=== PATIENT | male | born 1945 | race Caucasian/White ===

== ENCOUNTER 2021-05-20 11:25 | Observation (INO) | payer OTHER ==
[~2021-05-20] VITALS: Ht 175.3 cm; Wt 69.0 kg
--- NOTE | 2021-05-20 11:25 | NUR ---
PT TO ROOM 14 VIA EMS
[2021-05-20 12:04] LABS: HEMATOCRIT 38.3 % (39.0-50.0); HEMOGLOBIN 12.4 g/dl (14.0-18.0); IMMATURE GRANULOCYTES 0.2 % (0.0-5.0); MEAN CELL VOLUME 96.7 fL CALC (80.0-100.0); MEAN CORPUSCULAR HGB 31.3 pG CALC (26.0-32.0); MEAN CORPUSCULAR HGB CONC 32.4 g/dL CAL (32.0-36.0); NEUT# 6.71 thou/uL (1.82-7.42); RED BLOOD COUNT 3.96 mill/uL (4.70-6.10); RED CELL DISTRI WIDTH 13.3 % (11.5-15.5)
[2021-05-20 12:27] LABS: ALBUMIN 3.4 g/dL (3.2-5.0); BILIRUBIN, TOTAL 0.7 mg/dL (0.0-1.4); CREATININE 1.6 mg/dL (0.7-1.3); POTASSIUM 4.7 mmol/l (3.5-5.1); TOTAL PROTEIN 7.1 g/dL (6.3-8.2)
[2021-05-20 12:35] LABS: URINE BILIRUBIN - DIPSTICK NEGATIVE (NEGATIVE); URINE BLOOD DIPSTICK TRACE-INTACT (NEGATIVE); URINE COLOR YELLOW; URINE GLUCOSE - DIPSTICK >=1000 mg/dL (NEGATIVE); URINE KETONE 15 mg/dL (NEGATIVE); URINE LEUK ESTERASE NEGATIVE (NEGATIVE); URINE PROTEIN - DIPSTICK NEGATIVE (NEG-TRACE); URINE SPECIFIC GRAVITY 1.015; URINE UROBILINOGEN - DIPSTICK 0.2 E.U./dL (0.2)
[2021-05-20 12:40] LABS: URINE NITRITE - DIPSTICK NEGATIVE (Negative)
--- NOTE | 2021-05-20 13:41 | NUR ---
Reassessment of patient completed. No distress noted.
--- NOTE | 2021-05-20 13:57 | NUR ---
Reassessment of patient completed. No distress noted.
[2021-05-20] MEDS ORDERED: METFORMIN HCL500 M1 PO (14:18)
[2021-05-20] MEDS ORDERED: LIPITOR40 M1 PO (14:30)
[2021-05-20] MEDS ORDERED: METOPROLOL100 M1 PO (14:31)
[2021-05-20] MEDS ORDERED: LEVOTHYROXIN100 MC1 PO (14:31)
[2021-05-20] MEDS ORDERED: ZESTRIL10 M1 PO (14:31)
[2021-05-20] MEDS ORDERED: OMEPRAZOLE DR20 MG PO (14:32)
[2021-05-20] MEDS ORDERED: IPRATROPIUM BR0.03 % (14:37)
--- NOTE | 2021-05-20 14:41 | NUR ---
Contacted the [facility] @ [phone]. Otained medication list and reveiwed them in [employer]
--- NOTE | 2021-05-20 17:48 | NUR ---
ATTEMPT TO CALL REPORT TO MED/SURG
--- NOTE | 2021-05-20 18:10 | NUR ---
REPORT REC FROM ED
--- NOTE | 2021-05-20 18:10 | NUR ---
REPORT TO NURSE AMI
[2021-05-20 18:20] VITALS: BP 117/56
--- NOTE | 2021-05-20 18:20 | NUR ---
PT ARRIVED VIA WC ACCOMPANIED BY ED STAFF. PT ORIENTED TO ROOM. IVF INFUSING PER MAR ORDER. CALL LIGHT WITHIN REACH.
--- NOTE | 2021-05-20 19:23 | NUR ---
RECEIVE REPORT FROM NURSE REID PATIENT RESTING IN BED, BREATHING UNLABORED, CALL LIGHT AT REACH.
[2021-05-21] VITALS (8 sets, daily range): BP systolic 88–130; BP diastolic 50–66
--- NOTE | 2021-05-21 | NUR ---
PATOENT RESTING IN BED EYES CLOSED, BREATHING EVEN UNLABORED, CALL LIGHT AT REACH.
--- NOTE | 2021-05-21 04:16 | NUR ---
PATIENTS APPEARS TO BE SLEEPING WITH EYES CLOSED, BREATHING EVEN UNLABORED, CALL LIGHT IN REACH.
[2021-05-21 06:05] LABS: HEMATOCRIT 32.8 % (39.0-50.0); HEMOGLOBIN 10.6 g/dl (14.0-18.0); MEAN CELL VOLUME 97.3 fL CALC (80.0-100.0); MEAN CORPUSCULAR HGB 31.5 pG CALC (26.0-32.0); MEAN CORPUSCULAR HGB CONC 32.3 g/dL CAL (32.0-36.0); RED BLOOD COUNT 3.37 mill/uL (4.70-6.10); RED CELL DISTRI WIDTH 13.3 % (11.5-15.5)
[2021-05-21 06:27] LABS: ANION GAP 14 (6-22 (CALC)); BUN 23 mg/dL (8-23); BUN/CREATININE RATIO 17 (12-20 (CALC)); CARBON DIOXIDE 22 mmol/l (22-30); CHLORIDE 104 mmol/l (95-108); CREATININE 1.3 mg/dL (0.7-1.3); GFR 54 ML/MIN (>=60 (CALC)); GFR FOR AFR.AMER. > 60 ML/MIN (>=60 (CALC)); MAGNESIUM 1.8 mg/dL (1.6-2.3); POTASSIUM 4.2 mmol/l (3.5-5.1); SODIUM 136 mmol/l (137-146)
--- NOTE | 2021-05-21 06:45 | NUR ---
REPORT RECEIVED FROM CHERY MITTAL. CARE ASSUMED.
--- NOTE | 2021-05-21 07:45 | NUR ---
PATIENT RESTING IN BED AWAKE. PATINET IS ALERT AND ORIENTED X3. SHIFT ASSESSMENT COMPLETED AT THIS TIME. IV PATIENT X1. CALL LIGHT IN REACH. WILL CONTINUE TO MONITOR.
--- NOTE | 2021-05-21 12:10 | NUR ---
PATIENT TO MRI VIA WHEELCHAIR ACCOMAPNIED BY VOLUNTEER.
--- NOTE | 2021-05-21 12:17 | NUR ---
S- Pt continues to report spasm in LUE, 0- Pt resting in davis position with daughter present. Pt moved supine to sit with SBA and after intial sitting had LUE spasm which caused him to be and unsteading sitting, assist required to maintain sitting, DB and trying to relax. This occurred 2 more time in 30 min of treatment. Pt ambulated x 30' in room with CGA pt arm on therapist for safety reasons. Pt instructed and performed supine ex in bed included but not limited to bridging, heel slides ankle pumps. Importance of followin ex program/walking at home instructed. He was left in bed with call calvin in reach. A- [facility], home with home health. P- will follow.
--- NOTE | 2021-05-21 12:50 | NUR ---
PATIENT RETURNED FROM MRI TO ROOM.
--- NOTE | 2021-05-21 14:15 | NUR ---
neuro consult completed at this time.
--- NOTE | 2021-05-21 14:30 | NUR ---
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 Neurologist on Telemedicine and witnessed. Orders placed by Neurologist and attending informed of findings. NIHSS 0 prior to focal Neuro seizure. Will follow up on rounding next day
--- NOTE | 2021-05-21 16:00 | NUR ---
PATIENT RESTING IN BED AWAKE AND WATCHING TV. RESP ARE EVEN AND UNLABORED. NO DISTRESS NOTED. CALL LIGHT IN REACH. WILL CONTINUE OT MONITOR.
--- NOTE | 2021-05-21 19:00 | NUR ---
RECIEVED REPORT FROM ERICA RN
--- NOTE | 2021-05-21 19:57 | NUR ---
PT RESTING IN SEMI FOWLERS POSITION. PT IS A/OX3 AND DROWSY. ASSESSMENT COMPLETED. RESPIRATIONS ARE EVEN AND UNLABORED ON ROOM AIR. LUNG SOUNDS CLEAR. HEART RHYTHM NORMAL WITH TELE IN PLACE. BOWEL SOUNDS ACTIVE. PULSES STRONG. #20G LAC INFUSING WITH IVF PER ORDER, SITE APPEARS HEALTHY AND PATENT. SKIN INTACT. PT DENIES OF ANY PAINS OR DISCOMFORTS AT THIS TIME. ALL SAFTEY PRECAUTIONS ARE IN PLACE WITH CALL LIGHT IN REACH. SIEZURE PRECAUTIONS IN PLACE. WILL CONTINUE TO MONITOR
--- NOTE | 2021-05-21 23:53 | NUR ---
PT SLEEPING IN SEMI FOWLERS POSITION. RESPIRATIONS REMAINS EVEN AND UNLABORED ON ROOM AIR. #20G LAC INFUSING WITH IVF PER ORDER, SITE REMAINS HEALTHY AND PATENT. TELE MONITORING IN PLACE. NO SIGNS OF ANY PAINS OR DISCOMFORTS. ALL SAFTEY PRECAUTIONS ARE IN PLACE. WILL CONTINUE TO MONITOR. BED ALARM ACTIVE
[2021-05-22] VITALS: BP 98/45
[2021-05-22 04:00] VITALS: BP 112/57
--- NOTE | 2021-05-22 04:54 | NUR ---
PT SLEEPING IN SEMI FOLWERS POSITION. RESPIRATIONS ARE EVEN AND UNLABORED ON ROOM AIR. TELE MONITORING IN PLACE. #20G LAC INFUSING WITH IVF PER ORDER, SITE REMAINS HEALTHY AND PATENT. NO SIGNS OF ANY NEEDS. ALL SAFETY PRECAUTIONS ARE IN PLACE WITH CALL LIGHT IN REACH. WILL CONTINUE TO MONITOR.
[2021-05-22 05:32] LABS: HEMOGLOBIN 9.9 g/dl (14.0-18.0); MEAN CELL VOLUME 98.4 fL CALC (80.0-100.0); MEAN CORPUSCULAR HGB 32.5 pG CALC (26.0-32.0); RED BLOOD COUNT 3.05 mill/uL (4.70-6.10); RED CELL DISTRI WIDTH 13.5 % (11.5-15.5)
[2021-05-22 05:41] LABS: ANION GAP 10 (6-22 (CALC)); BUN 19 mg/dL (8-23); BUN/CREATININE RATIO 16 (12-20 (CALC)); CALCULATED LDLCHOLESTEROL 143 mg/dL (62-129 (CALC)); CARBON DIOXIDE 22 mmol/l (22-30); CHLORIDE 107 mmol/l (95-108); CHOLESTEROL HDL RATIO 6.1 (<4.4 (CALC)); CREATININE 1.2 mg/dL (0.7-1.3); GFR 59 ML/MIN (>=60 (CALC)); GFR FOR AFR.AMER. > 60 ML/MIN (>=60 (CALC)); HDL CHOLESTEROL 33 mg/dL (>=40); MAGNESIUM 1.7 mg/dL (1.6-2.3); POTASSIUM 3.5 mmol/l (3.5-5.1); SODIUM 135 mmol/l (137-146); TOTAL CHOLESTEROL 203 mg/dl (0-199); TOTAL TRIGLYCERIDES 132 mg/dl (30-149); VLDL CHOLESTROL 26 mg/dl (0-38 (CALC))
--- NOTE | 2021-05-22 08:00 | NUR ---
SHIFT CHANGE REPORT, PT SLEEPING, BREATHING EVEN AND NON-LABORED, TELE MONITOR IN PLACE, IVF INFUSING, CALL [place] IN REACH AND BED LOCKED IN LOWEST POSTTION.
[2021-05-22 08:40] VITALS: BP 106/62
--- NOTE | 2021-05-22 09:00 | NUR ---
PT AWAKE ALERT AND ORIENTED SITTING UP IN HIGH FOWLERS POSITION IN BED, NO C/O DISCOMFORT, ALL NEEDS ADDRESSED.
--- NOTE | 2021-05-22 09:51 | NUR ---
BEING TRANSPORTED OFF UNIT VIA W/C AT THIS TIME TO MRI, MEDICAL TEAM ROUNDED AND DISCUSSED PLAN OF CARE, PT STATES UNDERSTANDING AND AGREES TO HAVE PROCEDURE DONE, MRI MITIFIED OF RECENT MIND ALTERING DRUG JUST GIVEN.
[2021-05-22 10:39] VITALS: BP 110/66
[2021-05-22 10:43] VITALS: BP 112/66
--- NOTE | 2021-05-22 12:01 | NUR ---
PT RETURNED FROM MRI AND SETTLED IN BED, DROWSY AT THIS TIME, FAMILY MEMBER AT BEDSIDE. VIRTUAL NEUROGOLY CONSULT AND EVALUATIONBEING DONE WITH WILLIAN IN ROOM MANAGING EQUIPMENT AND ASSISTING WITH TACTILE AND VISUAL ASPECT OF EVAL. NEUROLOGIST PLAN IS TO VIEW RESULT OF MRI AND COMPARE WITH PREVIOUS ONE AND PT MAY GO HOME FROH HER STANDPOINT AND FOLLOW UP UPT PATIENT, HE WILL CONTINUE ON LEPPRA AT THIS TIME.
--- NOTE | 2021-05-22 12:12 | NUR ---
Attempted treatment this am but transport for MRI arrived, then neuro consult in progress. Will try later.
--- NOTE | 2021-05-22 14:05 | NUR ---
Patient in deep sleep with downstream occlusion monitor beeping. Patient gently awoken, was AOx4, explained that medication seems to be working, without any episodes of arm jerking today. He was significantly groggy during session, nodding off every couple of minutes.
[2021-05-22 14:10] VITALS: BP 121/76
--- NOTE | 2021-05-22 14:10 | NUR ---
Attempted treatment this pm. He was being seen by OT and schedule for another test today. Treatment held.
[2021-05-22] MEDS ORDERED: LEVETIRACETAM500 MG PO (15:25)
[2021-05-22] MEDS ORDERED: METFORMIN500 M2 PO (15:43)
--- NOTE | 2021-05-22 18:15 | NUR ---
Discharge instructions given. Patient verbalizes understanding of same. Discharged in good condition via Wheelchair to Home with family. All belongings sent with pt.
== END 2021-05-22 18:02 | disposition home health service (06) | DRG 101 ==
LOC: ED 11:25 → ED-I 14:14 → ED 14:14 → ED-I 14:19 → ED 14:36 → MS2 14:37
PROVIDERS: Family Medicine; Nurse Practitioner; ADMIT Hospitalist; ATTEND Hospitalist
DX: G40.109 Localization-related (focal) (partial) symptomatic epilepsy and epileptic syndromes with simple partial seizures, not intractable, without status epilepticus (principal); E87.1 Hypo-osmolality and hyponatremia; G83.84 Todd's paralysis (postepileptic); E11.65 Type 2 diabetes mellitus with hyperglycemia; I95.1 Orthostatic hypotension; E86.0 Dehydration; I10 Essential (primary) hypertension; E78.5 Hyperlipidemia, unspecified; K21.9 Gastro-esophageal reflux disease without esophagitis; I25.2 Old myocardial infarction; F40.240 Claustrophobia; F41.9 Anxiety disorder, unspecified; F17.210 Nicotine dependence, cigarettes, uncomplicated; Z79.84 Long term (current) use of oral hypoglycemic drugs; Z91.81 History of falling; Z20.822 Contact with and (suspected) exposure to COVID-19
CPT/HCPCS: A9579; J1953; J2060